=== PATIENT | female | born 1990 | race Caucasian/White ===

== ENCOUNTER 2016-09-13 22:19 | Emergency (ER) | payer OTHER ==
--- NOTE | 2016-09-13 22:33 | ED Physician Documentation ---
PD HPI ABD PAIN - Stated complaint Stated Complaint: ABD PX - Chief complaint Chief Complaint: Abd Pain - History obtained from History obtained from: Patient - History of Present Illness Timing - onset: How many days ago (2) Timing - details: Abrupt onset Pain level now: 8 Quality: Pain Location: Epigastric, LUQ Radiation: No: Chest, , Lower back, Left flank, Left shoulder, Right flank, Right shoulder, Upper back Improved by: Laying still Worsened by: Moving, Palpation Associated symptoms: Nausea, Vomiting. No: Fever, Diarrhea, Constipation Similar symptoms before: Diagnosis (gastroparesis, although she feels these symptoms are dissimilar) Recently seen: Not recently seen Review of Systems Constitutional: reports: Reviewed and negative Cardiac: reports: Reviewed and negative Respiratory: reports: Reviewed and negative GI: reports: Abdominal Pain, Nausea, Vomiting. denies: Constipation, Diarrhea : denies: Dysuria, Frequency, Now EGA Musculoskeletal: denies: Back pain PD PAST MEDICAL HISTORY - Past Medical History Past Medical History: Yes GI: Other ("born with two pancreases", per patient. 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 Living Arrangement: reports: At home PD ED PE NORMAL - Vitals Vital signs reviewed: Yes - General General: Alert and oriented X 3, No acute distress, Well developed/nourished - HEENT HEENT: Moist mucous membranes - Cardiac Cardiac: RRR, No murmur - Respiratory Respiratory: No respiratory distress, Clear bilaterally - Abdomen Abdomen: Normal bowel sounds, Soft, Non distended, Other (mild epigastric and LUQ tenderness) - Back Back: No CVA TTP - Derm Derm: Normal color, Warm and dry Results - Vitals Vitals: Vital Signs - 24 hr 06/09/14/16 09/14/16 22:22 00:30 02:06 Temperature 36.4 C L 36.2 C L 36.2 C L Heart Rate 84 90 85 Respiratory 16 16 14 Rate Blood Pressure 123/76 111/72 103/63 O2 Saturation 97 99 99 Oxygen O2 Source Room air - Labs Labs: Laboratory Tests 09/13/16 09/13/16 09/13/16 22:30 23:15 23:15 WBC 8.0 RBC 4.25 Hgb 13.2 Hct 36.9 L MCV 86.8 MCH 31.1 H MCHC 35.8 RDW 12.6 Plt Count 271 MPV 7.5 L Neut # 3.2 Lymph # 2.6 Prentiss # 0.4 Eos # 1.7 H Baso # 0.2 H Absolute Nucleated RBC 0.00 Band Neuts % (Manual) Not Reportable Nucleated RBCs 0.0 Differential Comment MANUAL=AUTO DIFF Platelet Estimate NORMAL (130-450,000) RBC Morph Micro Appear NORMAL APPEARANCE Sodium 141 Potassium 3.3 L Chloride 105 Carbon Dioxide 28 Anion Gap 8.0 BUN 12 Creatinine 0.7 Estimated GFR (MDRD) 100 Glucose 96 Calcium 9.9 Total Bilirubin 0.6 AST 32 ALT 36 Alkaline Phosphatase 90 Total Protein 6.6 L Albumin 4.3 Globulin 2.3 Albumin/Globulin Ratio 1.9 Lipase 33 Urine Color YELLOW Urine Clarity CLEAR Urine pH 6.5 Ur Specific [place] 1.015 Urine Protein NEGATIVE Urine Glucose (UA) NEGATIVE Urine Ketones NEGATIVE Urine Occult Blood NEGATIVE Urine Nitrite NEGATIVE Urine Bilirubin NEGATIVE Urine Urobilinogen 1 (NORMAL) Ur Leukocyte Esterase NEGATIVE Ur Microscopic Review NOT INDICATED Urine Culture Comments NOT INDICATED Urine HCG, Qual NEGATIVE PD MEDICAL DECISION MAKING - ED course Complexity details: reviewed results, re-evaluated patient, considered differential, d/w patient Departure - Departure Disposition: 01 Home, Self Care Clinical Impression: Abdominal pain Condition: Good Instructions: ED Abdominal Pain Unkn Cause Follow-Up: ELAINE BE[facility] [Primary Care Provider] - Discharge Date/Time: 09/14/16 03:25
[2016-09-13 22:38] LABS: BILIRUBIN,URINE NEGATIVE (NEGATIVE); PH,URINE 6.5 PH (5.0-7.5)
[2016-09-13 22:40] LABS: HCG UR QUAL NEGATIVE; UA CHARGE (STRIP ONLY) YES; UR CULTURE IF IND NOT INDICATED
[2016-09-13] MEDS ORDERED: HYDROmorphone 1 MG/ML SYRINGE IVP STA (23:02)
[2016-09-13] MEDS ORDERED: ONDANSETRON 4 MG/2 ML VIAL IVP STA (23:02)
[2016-09-13] MEDS ORDERED: HYDROmorphone 1 MG/ML SYRINGE ONE (23:16)
[2016-09-13] MEDS ORDERED: ONDANSETRON 4 MG/2 ML VIAL ONE (23:16)
[2016-09-13 23:26] LABS: BASOPHILS # (AUTO) 0.2 10^3/uL (0.0-0.1); BASOPHILS % (AUTO) 1.9 %; EOSINOPHILS # (AUTO) 1.7 10^3/uL (0.0-0.7); EOSINOPHILS % (AUTO) 20.7 %; HCT - HEMATOCRIT 36.9 % (37.0-47.0); HGB - HEMOGLOBIN 13.2 g/dL (12.0-16.0); LYMPHOCYTES # (AUTO) 2.6 10^3/uL (1.5-3.5); MEAN CORPUSCULAR HEMOGLOBIN 31.1 pg (27.0-31.0); MEAN CORPUSCULAR HGB CONC 35.8 g/dL (32.0-36.0); MEAN CORPUSCULAR VOLUME 86.8 fL (81.0-99.0); MEAN PLATELET VOLUME 7.5 fL (7.9-10.8); MONOCYTES # (AUTO) 0.4 10^3/uL (0.0-1.0); MONOCYTES % (AUTO) 4.9 %; NEUTROPHILS # (AUTO) 3.2 10^3/uL (1.5-6.6); NEUTROPHILS % (AUTO) 39.5 %; RED BLOOD COUNT 4.25 10^6/uL (4.20-5.40); RED CELL DISTRIBUTION WIDTH 12.6 % (12.0-15.0)
[2016-09-13 23:39] LABS: ALBUMIN/GLOBULIN RATIO 1.9 (1.0-2.2); BILIRUBIN,TOTAL 0.6 mg/dL (0.2-1.0); CALCIUM 9.9 mg/dL (8.5-10.3); CREATININE 0.7 mg/dL (0.4-1.0); POTASSIUM 3.3 mmol/L (3.5-5.0); TOTAL PROTEIN 6.6 g/dL (6.7-8.2)
[2016-09-13] MEDS ORDERED: PROMETHAZINE INJ 12.5 MG in SODIUM CHLORIDE 0.9% 50 ML IV STA (23:46)
[2016-09-13] MEDS ORDERED: PROMETHAZINE 25 MG/1 ML VIAL ONE (23:48)
[2016-09-13 23:49] LABS: NP AUTO DIFFERENTIAL? NO; NP MAN DIFFERENTIAL? YES; PLATELET ESTIMATE, MANUAL NORMAL (130-450,000) (NORMAL)
[2016-09-14 02:07] VITALS: BP 103/63
== END 2016-09-14 03:25 | disposition home or self-care (01) ==
LOC: ED 22:19
DX: R10.13 Epigastric pain (principal); R10.12 Left upper quadrant pain; Z90.49 Acquired absence of other specified parts of digestive tract
CPT/HCPCS: 36415; 80053; 81003; 81025; 83690; 85025; 96365; 96375; 99283; 99284; J1170; 81001; 87086

== ENCOUNTER 2016-10-07 15:18 | Outpatient (CLI) | payer OTHER | END 2016-10-07 15:19 | disposition home or self-care (01) | LOC: SC 15:18 | PROVIDERS: ATTEND Internal Medicine Pulmonary Disease | DX: G47.00 Insomnia, unspecified (principal) | CPT/HCPCS: 99203; 99212 ==

== ENCOUNTER 2016-11-03 19:27 | Outpatient (CLI) | payer OTHER | END 2016-11-03 19:28 | disposition home or self-care (01) | LOC: SC 19:27 | PROVIDERS: ATTEND Internal Medicine Pulmonary Disease | DX: G47.61 Periodic limb movement disorder (principal) | CPT/HCPCS: 95810 ==

== ENCOUNTER 2016-12-10 13:59 | Outpatient (CLI) | payer OTHER | END 2016-12-10 14:00 | disposition home or self-care (01) | LOC: SC 13:59 | PROVIDERS: ATTEND Nurse Practitioner Family | DX: G47.61 Periodic limb movement disorder (principal); G47.00 Insomnia, unspecified | CPT/HCPCS: 99212; 99214 ==

== ENCOUNTER 2017-06-17 10:54 | Outpatient (CLI) | payer OTHER ==
[2017-06-17 12:29] LABS: MEAN CORPUSCULAR HEMOGLOBIN 32.5 pg (27.0-31.0); MEAN CORPUSCULAR HGB CONC 35.5 g/dL (32.0-36.0); MEAN CORPUSCULAR VOLUME 91.6 fL (81.0-99.0); MEAN PLATELET VOLUME 7.1 fL (7.9-10.8); RED BLOOD COUNT 3.68 10^6/uL (4.20-5.40); RED CELL DISTRIBUTION WIDTH 13.1 % (12.0-15.0); WHITE BLOOD COUNT 8.7 x10^3/uL (4.8-10.8)
== END 2017-06-17 10:55 | disposition home or self-care (01) ==
LOC: LAB 10:54
PROVIDERS: ATTEND Registered Nurse
DX: Z34.82 Encounter for supervision of other normal pregnancy, second trimester (principal)
CPT/HCPCS: 36415; 82950; 86850

== ENCOUNTER 2017-07-16 09:29 | Outpatient (CLI) | payer OTHER ==
--- NOTE | 2017-07-20 14:13 | Ultrasound Report ---
OB ULTRASOUND: 07/16/2017 CLINICAL INDICATION: Followup low lying placenta. COMPARISON: Outside studies are not available for comparison. TECHNIQUE: Real-time scanning was performed with veterans contact representative static images obtained. LAST MENSTRUAL PERIOD: 11/30/2016 Clinical Age: 32 weeks 4 days US Age: 31 weeks 5 days EFW Hadlock: 1845 grams EFW% Hadlock: 20% Heart Rate: 132 bpm EDC: 09/06/2017 US EDC: 09/12/2017 BPD Hadlock: 30 weeks 3 days; Mean mm 76 HC Hadlock: 32 weeks 4 days; Mean mm 295 AC Hadlock: 31 weeks 6 days; Mean mm 278 FL Hadlock: 32 weeks 0 days; Mean mm 62 Presentation: cephalic Placental Location: posterior Cervical Length: -- Amniotic Fluid: DELMA 9.4 cm; MVP 4.0 cm FINDINGS There are single viable intrauterine gestation, in cephalic presentation. heart rate is 132 BPM. The placenta is posterior, without evidence of previa. Amniotic fluid volume is normal, with an DELMA of 9.4. By size, the fetus measures 31 weeks 5 days (32 weeks 4 days by LMP). Estimated weight by Hadlock method is 1845 grams. IMPRESSION: SINGLE VIABLE INTRAUTERINE GESTATION, WITH SIZE IN KEEPING WITH LMP DATING. NO EVIDENCE OF LOW LYING PLACENTA. NORMAL AMNIOTIC FLUID INDEX. TD: 07/16/2017 15:51 MTDD
== END 2017-07-16 09:30 | disposition home or self-care (01) ==
LOC: DI 09:29
PROVIDERS: ATTEND Nurse Practitioner Obstetrics & Gynecology
DX: O44.43 Low lying placenta NOS or without hemorrhage, third trimester (principal)
CPT/HCPCS: 76816

== ENCOUNTER 2017-08-03 08:00 | Outpatient (CLI) | payer OTHER | END 2017-08-03 23:59 | LOC: LAB.R 08:00 | PROVIDERS: ATTEND Nurse Practitioner Obstetrics & Gynecology | DX: Z36.85 Encounter for antenatal screening for Streptococcus B (principal) | CPT/HCPCS: 87081 ==

== ENCOUNTER 2017-08-28 04:49 | Inpatient (IN) | payer OTHER ==
[2017-08-28] MEDS ORDERED: SODIUM CHLORIDE FLUSH 0.9% 10 ML SYRINGE IVP PRN (05:05)
[2017-08-28] MEDS ORDERED: OXYTOCIN/SODIUM CHLORIDE 250 ML IV ONE ×2 (05:05→14:03)
[2017-08-28 05:27] LABS: RUPTURE OF MEMBRANES PLUS POSITIVE (NEGATIVE)
[2017-08-28 05:29] LABS: BILIRUBIN,URINE NEGATIVE (NEGATIVE); GLUCOSE, URINE (UA) NEGATIVE (NEGATIVE); KETONES,URINE (UA) NEGATIVE (NEGATIVE); LEUKOCYTE ESTERASE, URINE NEGATIVE (NEGATIVE); NITRITE,URINE NEGATIVE (NEGATIVE); OCCULT BLOOD,URINE NEGATIVE (NEGATIVE); PROTEIN,URINE NEGATIVE (NEGATIVE); UROBILINOGEN,URINE 0.2 (NORMAL) E.U./dL (NORMAL)
[2017-08-28 05:35] LABS: BACTERIA,URINE Few /HPF (None Seen); CLARITY,URINE CLEAR (CLEAR); RBC,URINE 0-5 /HPF (0-5); SQUAMOUS EPITHELIAL CELL,UR FEW Squamous (<= Few)
[2017-08-28] MEDS: LACTATED RINGERS 1,000 ML IV SCH ×2 (06:12→09:31)
[2017-08-28 06:21] LABS: BASOPHILS % (AUTO) 0.5 %; EOSINOPHILS # (AUTO) 0.2 10^3/uL (0.0-0.7); EOSINOPHILS % (AUTO) 2.3 %; HGB - HEMOGLOBIN 12.6 g/dL (12.0-16.0); LYMPHOCYTES # (AUTO) 1.8 10^3/uL (1.5-3.5); LYMPHOCYTES % (AUTO) 23.7 %; MEAN CORPUSCULAR HEMOGLOBIN 32.6 pg (27.0-31.0); MEAN CORPUSCULAR HGB CONC 35.5 g/dL (32.0-36.0); MEAN CORPUSCULAR VOLUME 91.9 fL (81.0-99.0); MEAN PLATELET VOLUME 7.8 fL (7.9-10.8); MONOCYTES # (AUTO) 0.7 10^3/uL (0.0-1.0); MONOCYTES % (AUTO) 8.9 %; NEUTROPHILS # (AUTO) 4.8 10^3/uL (1.5-6.6); NEUTROPHILS % (AUTO) 64.6 %; PLT - PLATELET COUNT 250 10^3/uL (130-450); RED BLOOD COUNT 3.87 10^6/uL (4.20-5.40); RED CELL DISTRIBUTION WIDTH 13.2 % (12.0-15.0); WHITE BLOOD COUNT 7.5 x10^3/uL (4.8-10.8)
[2017-08-28] MEDS ORDERED: fentaNYL 100 MCG/2 ML VIAL IVP PRN (06:49)
[2017-08-28] MEDS ORDERED: fent/BUPIV 2 MCG/0.125% 250 ML EP ONE (08:57)
[2017-08-28] MEDS ORDERED: SODIUM CHLORIDE FLUSH 0.9% 10 ML SYRINGE IVP SCH (09:00)
[2017-08-28] MEDS ORDERED: LACTATED RINGERS 500 ML IV ONE (09:23)
[2017-08-28] MEDS ORDERED: NALOXONE 0.4 MG/ML VIAL IVP PRN (09:23)
[2017-08-28] MEDS ORDERED: NALBUPHINE 10 MG/ML AMP IVP PRN (09:23)
[2017-08-28] MEDS ORDERED: fent/BUPIV 2 MCG/0.125% 250 ML EP PRN (09:23)
[2017-08-28] MEDS ORDERED: BUPIVACAINE 0.25% PF 30 ML VIAL SUBQ ONE (09:24)
[2017-08-28] MEDS: ONDANSETRON 4 MG/2 ML VIAL IVP PRN ×2 (09:46→18:28)
[2017-08-28] MEDS: ePHEDrine 50 MG/ML VIAL IVP PRN ×3 (10:32→10:55)
--- NOTE | 2017-08-28 11:19 | HISTORY & PHYSICAL EXAMINATION ---
Admit History - Instructions [place]/Slash: -Left hand click circles element as positive or present. -Right hand click slashes element as negative or not present. - Visit Reason Visit Reason: Membranes rupture (@ 0400, CAF, copious) - : 1 Parity: 0 Premature: 0 Ectopic: 0 : 0 Care: positive: [facility] (transfer of care @ 26 weeks' gestation), [facility]- [place] Risk/History: positive: None Complications This : positive: None Smoking Status: Never smoker - Mother's Labs GBS: positive: Group B Step Negative Meds/Allgy - Home Medications Home Medications: Ambulatory Orders Medication Instructions Recorded Confirmed Omeprazole [PriLOSEC] 10 mg PO DAILY 09/13/16 09/13/16 Sertraline [Zoloft] 50 mg PO DAILY 09/13/16 09/13/16 - Allergies Allergies/Adverse Reactions: Allergies Allergy/AdvReac Type Severity Reaction Status Date / Time meperidine HCl * AdvReac Nausea Verified 09/13/16 22:27 [From [facility]] Review of Systems - Constitutional Constitutional: denies: Fatigue, Fever, Chills - Cardiovascular Cariovascular: denies: Irregular heart rate, Palpitations, Chest pain, Edema - Respiratory Respiratory: denies: Cough, Sputum production, Wheezing, SOB at rest, SOB with exertion - Gastrointestinal Gastrointestinal: reports: Abdominal pain. denies: Constipation, Diarrhea, Nausea, Vomiting - Genitourinary Genitourinary: reports: Frequency, Urgency. denies: Dysuria - Musculoskeletal Musculoskeletal: reports: Back pain - Integumentary Integumentary: denies: Rash, Pruritis, Lesions - Neurological Neurological: denies: General weakness, Headache - Psychiatric Psychiatric: denies: Depression, Anxiety - All Other Systems All Other Systems: reports: Other (+FM, +LOF, clear, no vaginal bleeding) Physical - Abdominal Exam Vital Signs: Temp Pulse Resp BP Pulse Ox 97 20 122/83 H 100 08/28/17 05:03 08/28/17 05:03 08/28/17 05:03 08/28/17 05:03 Contraction Frequency (min/apart): 2-3 Contraction Intensity: positive: Strong Uterine Resting Tone: positive: Soft - Monitoring Heart Rate Baseline: 135 Strip Review: positive: Category I - Presentation Presentation: positive: Vertex - Vaginal Exam Membranes: positive: Membranes ruptured (gross rupture) Dilation (in cm): 2 Effacement (%): 50 Station: positive: -2 Cervical Position: positive: Posterior (per RN) - Speculum Exam Speculum Exam Performed: positive: No Findings: positive: Gross leak - Other Notes Labor Progress Note/Additional Text: Peggy Troy is a 27 y/o at 38w5d by first trimester US who has received consistent care t/o her . Her has been complicated by lowlying placenta w/ resolution @ 32 weeks' gestation. She presents w/ complaint of gross SROM for CAF @ 0400 & contractions that are painful. She ultimately desires epidural placement. PMH: cholecystitis, generalized anxiety, lumbar pain PsH: cholecystectomy w/o complication POBhx: primiparous Pgynhx: no hx STI, no hx abnl pap Sochx: to Partha, denies DV; denies tob/ETOH/drugs PE: GEN: AAOx3, NAD [place] gravid female HEENT:Grossly normocephalic, atraumatic RESP: CTA b/l t/o CARDIAC: RRR nls1s2, no murmur GI: Abd NT, gravid, palpable strong contractions, lie longitudinal, presentation cephalic, efw 6.5-7# : no lesion, copious leakage of CAF, SVE per RN /-2 OB: EFM BL 135bpm, +accels, no decels, mod rox TOCO: UCs q2-3 min, palp strong MS: FROM t/o, no deformity, no erythema, no edema NEURO: No focal deficit SKIN: C/D/I, no lesion, warm, well-perfused PSYCH: normal mood & affect Plan for Labor - Plan For Labor I expect patient to be DC'd or transferred within 96 hours.: Yes Plan for Labor: 1. Admit 2. IV insertion 3. Admission labs 4. Reassess cervical status x2 hours, augmentation PRN 5. Analgesia/anesthesia PRN
--- NOTE | 2017-08-28 11:20 | PROVIDER PROGRESS NOTE ---
Labor Progress Note - Uterine Monitoring Uterine Monitoring Mode: positive: External toco Contraction Frequency (min/apart): 2-3 min Contraction Intensity: positive: Strong Uterine Resting Tone: positive: Soft - Monitoring Monitor Mode: positive: External ultrasound Heart Rate Baseline: 130 Heart Rate Variability: positive: Moderate (6-25 bmp) Accelerations: positive: Present, 15x15 Decelerations: positive: None - Vaginal Exam Dilation (in cm): 5 Effacement (%): 80 Station: -1 Cervical Position: Midposition - Labor Progress Note Labor Progress Note/Additional Text: S: Peggy is comfortable w/ her epidural in place. Partha & her friend are present @ the bedside & supportive. O: AAOx3, NAD [place] female VSS EFM: BL 130bpm, +accels, no decels, mod rox TOCO: UCs q2-3 min x60-80 seconds, palp strong SVE: 5/80/-1, ongoing leakage of CAF A: 27 y/o @ 38w5d SROM x5 hours, afebrile GBS negative Active labor FHTs cat I Adequate pain control w/ epidural anesthesia P: 1. Reassess cervical status x4 hours, earlier PRN 2. Encouraged maternal rest 3. Anticipate
--- NOTE | 2017-08-28 13:29 | PROVIDER PROGRESS NOTE ---
Labor Progress Note - Uterine Monitoring Uterine Monitoring Mode: positive: External toco Contraction Frequency (min/apart): 2-3 Contraction Intensity: positive: Strong Uterine Resting Tone: positive: Soft - Monitoring Monitor Mode: positive: External ultrasound Heart Rate Baseline: 130 Heart Rate Variability: positive: Moderate (6-25 bmp) Accelerations: positive: Present, 15x15 Decelerations: positive: None - Vaginal Exam Dilation (in cm): 10 Effacement (%): 100 Station: 2 Cervical Position: Anterior - Labor Progress Note Labor Progress Note/Additional Text: S: Peggy is comfortable w/ her epidural in place. She has no sensation of pressure. Her , Partha, & friend are present @ the bedside & are supportive. O: VSS EFM: BL 130bpm, + accels, no decels, mod variability TOCO: UCs q2-3 min x60-80 seconds, palp strong SVE: 10/100/+2, ongoing LOF, clear A: 27 y/o @ 38w5d by early first trimester US, SROM x9.5 hours, afebrile GBS negative FHTs cat I 2nd stage labor Adequate pain control w/ epidural anesthesia P: 1. Reviewed anticipatory guidance for 2nd stage labor 2. Pt to call her commercial photographer 3. Begin pushing shortly 4. Anticipate
[2017-08-28] MEDS ORDERED: MAGNESIUM HYDROXIDE 2,400 MG/30 ML UDC PO PRN (14:03)
--- NOTE | 2017-08-28 14:11 | DELIVERY NOTE ---
Delivery Note - Labor Labor: positive: Spontaneous - Delivery Method Delivery Method: positive: Spontaneous vaginal delivery - Presentation Presentation: positive: Vertex, ALEXX - right occiput anterior - Nuchal Cord Nuchal Cord: positive: None (R arm cord) - Anesthetic Anesthetic Type: - Amniotic Fluid Description Amniotic Fluid Description: positive: Clear (SROM @ 0400, for a total ruptured duration of 9 hours, 50 minutes) - Episiotomy Type Episiotomy Type: positive: None - Laceration Laceration: positive: 1st degree - Suture Suture Type: positive: Vicryl Suture Size: positive: 3-0 - Delivery Outcome Delivery Outcome: positive: Livebirth - [place]: positive: Placed in direct skin contact with mother, Bulb syringe, Stimulated, Warmed, [place] used, Warmer used [place] sex: positive: Male - Cord Cord: positive: 3 vessels - Placenta Placenta: positive: Intact, Spontaneous - Estimated Blood Loss Estimated Blood Loss (in cc): 150 - Post Delivery Events Post Delivery Events: positive: No post delivery events - Delivery Comments (Free Text/Narrative) Delivery Comments (Free Text/Narrative): Peggy Troy is a 27 y/o [id number] who presented in spontaneous active labor @ 38w5d by first trimester US w/ SROM for copious CAF @ 0400. She was found to be 2cm @ 0530 & progressed to 5cm by 0900. She received fentanyl 100mcg IVP x2 for analgesia & an epidural for anesthesia. FHTs were monitored electronically t/o & were consistently cat I. She progressed w/o additional augmentation to complete dilatation @ 1322, for a total first stage duration of 7 hours, 52 minutes. She labored down until her finish photographer arrived & then elected to begin pushing @ 1344. She pushed w/ direction to achieve of viable male in ALEXX position over a 1st degree perineal laceration @ 1350, for a total 2nd stage duration of 6 minutes. R arm cord reduced s/p delivery of shoulders/ body. Infant placed to maternal abd for drying/stim. Delayed cord clamping until 60 seconds, at which time RN requested evaluation of @ warmer for no spontaneous cry. Cord clamped x2 by CNM, cut by FOB. 3VC noted, cord blood obtained. apgars 6/9. Active management of 3rd stage of labor w/ Pitocin in IV fluids. Placenta delivered spontaneously, [place], @ 1353, for a total 3rd stage duration of 3 minutes. FF @ U-1. Vagina & perineum inspected & shallow 1st degree perineal/vaginal laceration noted; repaired under epidural anesthesia w/ single stitch of 3-0 vicryl, hemostatic. EBL 150mL. Mother & stable. Planning to breastfeed. Infant nuzzling @ breast w/in 15 minutes of delivery. Weight pending.
[2017-08-28] MEDS: IBUPROFEN 800 MG TABLET PO SCH ×2 (16:28→23:10)
[2017-08-28] MEDS: ACETAMINOPHEN 500 MG TABLET PO SCH (16:28)
[2017-08-28] MEDS: HYDROcod/ACETAM 5/325 MG TABLET PO PRN ×2 (18:28→23:09)
[2017-08-28] MEDS ORDERED: SODIUM CHLORIDE FLUSH 0.9% 10 ML SYRINGE ONE (18:35)
[2017-08-28] MEDS: DOCUSATE SODIUM 100 MG CAPSULE PO SCH (23:09)
[2017-08-28] MEDS: PROMETHAZINE 25 MG TABLET PO PRN (23:10)
[2017-08-29] MEDS: ACETAMINOPHEN 500 MG TABLET PO SCH ×2 (00:59→12:21)
[2017-08-29] MEDS: PROMETHAZINE 25 MG TABLET PO PRN ×3 (04:56→21:17)
[2017-08-29] MEDS: HYDROcod/ACETAM 5/325 MG TABLET PO PRN ×5 (04:56→21:14)
[2017-08-29] MEDS: IBUPROFEN 800 MG TABLET PO SCH ×3 (04:57→18:16)
[2017-08-29] MEDS: DOCUSATE SODIUM 100 MG CAPSULE PO SCH ×2 (08:24→21:14)
--- NOTE | 2017-08-29 10:59 | ANESTHESIA POST OP EVALUATION ---
Anesthesia Post Eval - Post Anesthesia Eval CV Function Including HR & BP: positive: Stable : : : Pain Control: positive: Adequate Nausea & Vomiting: positive: Negative : Mental Status: positive: Appropriate Anesthesia Complications: positive: None
--- NOTE | 2017-08-29 14:03 | PROVIDER PROGRESS NOTE ---
Subjective - Prog Note Date Prog Note Date: 08/29/17 Prog Note Time: 13:00 - Subjective Pt reports feeling: Improved Subjective: Peggy reports that her pain is well-controlled w/ her current analgesa, which includes vicodin occasionally. She is ambulating & voiding w/o difficulty. She is well w/o difficulty or pain. She reports minimal lochia rubra. She is planning 12 weeks of pp leave & her partner will have 10 days of pp leave to assist her at home. Objective - Vital Signs/Intake & Output Reviewed Vital Signs: Yes Vital Signs: Vital Signs x48h Temp Pulse Resp BP Pulse Ox 08/29/17 08:00 36.8 C 85 16 95/52 L 97 Intake & Output: Intake & Output 08/26/17 08/27/17 08/28/17 08/29/17 23:59 23:59 23:59 23:59 Intake Total 1597.5 Output Total 1350 Balance 247.5 - Objective General Appearance: positive: No acute distress, Alert Eyes Bilateral: positive: Normal inspection Respiratory: positive: Chest non-tender, No respiratory distress, Breath sounds nml Cardiovascular: positive: Regular rate & rhythm, No murmur, No gallop Abdomen: positive: Non-tender, No distention, Other (FF U-2) Skin: positive: Color nml, No rash, Warm, Dry Extremities: positive: Non-tender, Full ROM, Nml appearance, No pedal edema. negative: Calf tenderness, Ezio's sign/cords Neurologic/Psychiatric: positive: Oriented x3, CN's nml (2-12), Motor nml, Sensation nml, Mood/affect nml - Lab Results Fish Bones: 08/28/17 06:05 Assessment/Plan - Problem List (1) (normal spontaneous vaginal delivery) Impression: 27 y/o s/p , PPD #1 adequate pain control well Normal uterine involution Plan: 1. continue routine care 2. support provided & to continue in ongoing fashion 3. anticipate d/c home PPD#2
[2017-08-30] MEDS: HYDROcod/ACETAM 5/325 MG TABLET PO PRN ×3 (00:54→10:30)
[2017-08-30] MEDS: PROMETHAZINE 25 MG TABLET PO PRN ×2 (04:56→10:30)
[2017-08-30] MEDS: IBUPROFEN 800 MG TABLET PO SCH ×2 (04:56→10:30)
[2017-08-30] MEDS: DOCUSATE SODIUM 100 MG CAPSULE PO SCH (10:30)
[2017-08-30 13:20] VITALS: BP 108/63
--- NOTE | 2017-08-30 13:41 | Discharge Plan ---
Discharge Plan Disposition: [facility] DC/Xfer Prescriptions: HYDROcod/ACETAM [[place] ] 1 tab PO Q6H PRN #10 tablet PRN Reason: Pain Diet: Regular Activity Restrictions: pelvic rest x6 weeks Shower Restrictions: No Driving Restrictions: No Weight Bearing: Full Weight Instruction Topics: Vaginal After, Breastfeed How To, Exercises [place]egel Additional Instructions or Follow Up instructions: x1 week w/ Soila Boateng CNM No Smoking: If you smoke, Please STOP! Call for help. Follow-up with: Soila Boateng CNM, FILIPE [Provider Admit Priv/Credential] -
--- NOTE | 2017-08-30 13:44 | DISCHARGE SUMMARY ---
"Discharge Summary Admit Date: 08/28/17 Discharge Date: 08/30/17 Discharging Provider: MISHA Code Status: Attempt Resuscitation Condition at Discharge: Good Discharge Disposition: 01 Home, Self Care Discharge Facility Name: [facility] - DIAGNOSES Admission Diagnoses: ACTIVE LABOR W/ SROM @ TERM Discharge Diagnoses with Status of Each Condition: - HPI History of Present Illness: REBEKA CUETO IS A 27 Y/O [id number] WHO PRESENTED IN SPONTANEOUS, ACTIVE LABOR @ 38W5D W/ SROM FOR CAF. SHE RECEIVED AN EPIDURAL FOR ANESTHESIA & PROGRESSED STEADILY TO COMPLETE DILATATION W/O INTERVENTION. SHE DELIVERED A VIABLE MALE VAGINALLY OVER A 1ST DEGREE INTROITAL LACERATION, WHICH WAS REPAIRED UNDER EPIDURAL ANESTHESIA; NO COMPLICATIONS. - CONSULTS | PROCEDURES Consultations: ANESTHESIA Procedures: EPIDURAL PLACEMENT REPAIR OF 1ST DEGREE LACERATION - HOSPITAL COURSE Hospital Course: , CARL PAIN IS CONTROLLED W/ USE OF OCCASIONAL HYDROCODONE. SHE IS AMBULATING & VOIDING W/O INCIDENT. SHE IS PASSING FLATUS & TOLERATING PO INTAKE. SHE REPORTS MINIMAL LOCHIA RUBRA. SHE IS WELL W/ SOME MINOR CHALLENGES. SHE IS NOT PLANNING TO RETURN TO WORK. SHE IS UNDECIDED RE: PP CONTRACEPTION BUT IS LEANING TOWARDS A BARRIER METHOD. HER PARTNER WILL HAVE 10 DAYS OFF TO ASSIST HER W/ HER INFANT. SHE IS TAKING SERTRALINE & IS STABLE ON HER PRESENT DOSING. SHE IS ABLE TO FULLY ARTICULATE PP WARNING S/SX, INCLUDING PP DEPRESSION S/SX, AND PP AFTERCARE INSTRUCTIONS. SHE IS READY TO LEAVE THE HOSPITAL. - ALLERGIES Allergies/Adverse Reactions: Allergies Allergy/AdvReac Type Severity Reaction Status Date / Time meperidine HCl * AdvReac Nausea Verified 09/13/16 22:27 [From Demerol] - MEDICATIONS Home Medications: Ambulatory Orders Medication Instructions Recorded Confirmed Omeprazole [PriLOSEC] 10 mg PO DAILY 09/13/16 09/13/16 Sertraline [Zoloft] 50 mg PO DAILY 09/13/16 09/13/16 HYDROcod/ACETAM 5/325 [[place] 5/325] 1 tab PO Q6H PRN #10 tablet 08/30/17 Ibuprofen [Motrin] 800 mg PO Q6H tablet 08/30/17 - PHYSICAL EXAM AT DISCHARGE General Appearance: positive: No acute distress, Alert Respiratory: positive: Chest non-tender, No respiratory distress, Breath sounds nml Cardiovascular: positive: Regular rate & rhythm, No murmur, No gallop Abdomen: positive: Non-tender, No distention, Other (FF U-3) Skin: positive: Color nml, No rash, Warm, Dry Extremities: positive: Non-tender, Full ROM, Nml appearance, No pedal edema. negative: Calf tenderness, Ezio's sign/cords Neurologic/Psychiatric: positive: Oriented x3, CN's nml (2-12), Motor nml, Sensation nml, Mood/affect nml Physical Exam Other/Comments: BREASTS B/L FILLING, NIPPLES B/L INTACT & SLIGHTLY FLATTENED; ECCHYMOTIC AREAS SURROUNDING B/L AREOLAS. - LABS Result Diagrams: 08/28/17 06:05 - FOLLOW UP Follow Up: X1 WEEK W/ MKarl CABRAL CNM, EARLIER PRN - TIME SPENT Time Spent in Discharge (Minutes): 20"
== END 2017-08-30 14:50 | disposition home or self-care (01) | DRG 774 ==
LOC: WFO 04:49 → FBP 04:50 → WFO 04:54 → FBP 04:55
PROVIDERS: ADMIT Registered Nurse; ATTEND Registered Nurse
PROC: 10E0XZZ Delivery of Products of Conception, External Approach (ICD-10-PCS; principal; 2017-08-28)
PROC: 0HQ9XZZ Repair Perineum Skin, External Approach (ICD-10-PCS; 2017-08-28)
PROC: 10E0XZZ Delivery of Products of Conception, External Approach (ICD-10-PCS; 2017-08-28)
DX: O42.02 Full-term premature rupture of membranes, onset of labor within 24 hours of rupture (principal); O44.40 Low lying placenta NOS or without hemorrhage, unspecified trimester; O99.824 Streptococcus B carrier state complicating childbirth; O70.0 First degree perineal laceration during delivery; O99.344 Other mental disorders complicating childbirth; F41.9 Anxiety disorder, unspecified; O69.89X0 Labor and delivery complicated by other cord complications, not applicable or unspecified; Z3A.38 38 weeks gestation of pregnancy; Z37.0 Single live birth
CPT/HCPCS: 81001; 84112; 85025; 87086; 99213

== ENCOUNTER 2017-10-13 08:00 | Outpatient (CLI) | payer OTHER | END 2017-10-13 08:01 | disposition home or self-care (01) | LOC: LAB.R 08:00 | PROVIDERS: ATTEND Registered Nurse | DX: O91.23 Nonpurulent mastitis associated with lactation (principal) | CPT/HCPCS: 87070; 87205 ==